=== PATIENT | male | born 1960 | race Caucasian/White ===

== ENCOUNTER 2019-05-02 00:55 | Day surgery (SDC) | payer OTHER, SELFPAY ==
[2019-04-29 13:53] VITALS: BMI 29.0
--- NOTE | 2019-05-02 10:08 | WPDANESEPPF ---
Anes - Initial Pre Proc Eval Procedure: Operation Date: 05/02/19 11:30 Proposed Procedures p Screening Colonoscopy - Justin Skinner MD Date/Time: 05/02/19 10:08 Surgeon: Justin Skinner MD Pre Op Diagnosis: Neoplasm Screening Patient Data Age: 59 Gender: M Height: 1.85 m Weight: 100 kg Allergies Allergy/AdvReac Type Severity Reaction Status Date / Time No Known Allergies Allergy Verified 04/29/19 13:52 Home Medications Medication Instructions Recorded Confirmed Type No Home Medications 04/29/19 04/29/19 History Patient hx anesthesia problems: none Family hx anesthesia problems: none PMFSH Past Medical History Medical History (Updated 05/02/19 @ 10:09 by Brock Mackenzie MD) Gastroesophageal reflux disease Overweight (BMI 25.0-29.9) PUD (peptic ulcer disease) HAD ULCER AT GE JUNCTION 2018 Family History Family History (Updated 03/11/18 @ 08:48 by DOCTOR UNKNOWN) Father Family history of coronary artery disease Patient's father is in good health Family history of cardiovascular disease Family history of malignant melanoma Mother Patient's mother is in good health Hypertension Sibling Patient's sister is in good health Patient's brother is in good health Grandparent Carcinoma of colon, Onset Age: 57 Social History Social History Smoking status: Former smoker Smoking end date: 02/26/83 Alcohol intake: current Anes - Eval Final PreProcedure Day of Procedure 05/02/19 10:08 Patient weight: overweight Heart: regular rate and rhythm Lungs: clear to auscultation and normal air movement Airway: Mallampati scale class II Neurological: alert and oriented Last oral intake: >/= 8 hours ASA classification: II Emergent: no Anesthetic plan: proceed Anesthesia type and monitoring: general GIVS Informed Consent: The patient's anesthetic plan and its attendant risks and benefits were discussed with the patient/family/POA. Questions were solicited and answers provided to the satisfaction of the patient/family/POA.
--- NOTE | 2019-05-02 10:24 | P.HP_ITS ---
History of Present Illness History of Present Illness Consent: Risks, benefits, and alternatives have been discussed and questions answered. Patient agrees to proceed with procedure. Chief complaint: Neoplasm Screening Narrative: Nacho Crabtree is a 59 year old W male referred for screening colonoscopy secondary history of colonic polyps colonoscopy 5 years ago. Patient also has 2 siblings with colon polyps and paternal grandfather with colon cancer. Patient is asymptomatic. [facility]LY [facility], [facility] Past Medical History Medical History (Updated 05/02/19 @ 10:09 by Brock Mackenzie MD) Gastroesophageal reflux disease Overweight (BMI 25.0-29.9) PUD (peptic ulcer disease) HAD ULCER AT GE JUNCTION 2018 Family History Family History (Updated 03/11/18 @ 08:48 by DOCTOR UNKNOWN) Father Family history of coronary artery disease Patient's father is in good health Family history of cardiovascular disease Family history of malignant melanoma Mother Patient's mother is in good health Hypertension Sibling Patient's sister is in good health Patient's brother is in good health Grandparent Carcinoma of colon, Onset Age: 57 Social History Social History Smoking status: Former smoker Smoking end date: 02/26/83 Alcohol intake: current Meds Home Medications and Allergies Home Medications Medication Instructions Recorded Confirmed Type No Home Medications 04/29/19 04/29/19 History Allergies Allergy/AdvReac Type Severity Reaction Status Date / Time No Known Allergies Allergy Verified 04/29/19 13:52 Exam Const: Orientation/consciousness: patient oriented x3 Resp: Auscultation: clear to auscultation bilaterally Cardio: Rate: regular rate Rhythm: regular rhythm Heart sounds: no murmurs GI: GI Palp: Yes Soft to palpation, No Tenderness to palpation present (GI), Yes No hepatosplenomegaly present and No Palpable mass present Auscultation: normal bowel sounds Neuro: General: patient oriented x3 and no focal motor deficits Extrem: General: no pedal edema Assessment and Plan Additional Plan Screening colonoscopy in high risk patient
[2019-05-02 10:27] VITALS: BP 132/89; PULSE 72; RESP 17; TEMP 36.3; O2SAT 99
[2019-05-02] MEDS: LACTATED RINGERS 1,000 ML 150 ML IV CONT (10:32)
[2019-05-02 11:37] VITALS: BP 123/79; PULSE 74; RESP 18; O2SAT 94
[2019-05-02 11:47] VITALS: BP 117/80; PULSE 68; RESP 18; O2SAT 98
== END 2019-05-02 12:08 | disposition home or self-care (01) ==
PROVIDERS: PCP Internal Medicine; Visit Provider Internal Medicine Gastroenterology
PROC: 0DJD8ZZ Inspection of Lower Intestinal Tract, Via Natural or Artificial Opening Endoscopic (ICD-10-PCS; CPT 45378; principal; 2019-05-02 11:30)
DX: Z12.11 Encounter for screening for malignant neoplasm of colon (principal); D12.2 Benign neoplasm of ascending colon; K62.1 Rectal polyp; K57.30 Diverticulosis of large intestine without perforation or abscess without bleeding; Z83.71 Family history of colonic polyps; K21.9 Gastro-esophageal reflux disease without esophagitis; K27.9 Peptic ulcer, site unspecified, unspecified as acute or chronic, without hemorrhage or perforation; Z87.891 Personal history of nicotine dependence
CPT/HCPCS: 45380; 88305; J2704; J7120

== ENCOUNTER 2024-05-29 02:02 | Day surgery (SDC) | payer OTHER, SELFPAY ==
[2024-05-19 13:13] VITALS: BMI 29.0
--- OUTSIDE RECORDS SUMMARY | 2024-05-29 02:05 | XMS_ITS | Encounter Summary ---
Author Organization [facility] Address [address] [place] [address] Care Team Providers Care Aerospace Project Manager Name Role Phone ErnaNic emery Katya DO Primary Care Provider Encounter Details Date Type Department Care Team (Late st Contact Info) Description 07/18/2018 Lab Requisition [facility] Care DermPath Lab [address] [place] [id number] Cuate Norton MD [address] [place] [address] Social History Tobacco Use Types Packs/Day Years Used Date Smoking Tobacco: Former Cigarettes Alcohol Use Standard Drinks/Week Comments Yes 5 (1 standard drink = 0.6 oz pur e alcohol) Sex and Gender Information Value Date Recorded Sex Assigned at Not on file Gender Identity Not on file Sexual Orientation Not on file documented as of this encounter Plan of Treatment Not on file documented as of this encounter Procedures Procedure Name Priority Date/Time Associated Diagnosis Comments DERMATOPATHOLOGY Routine 07/17/2018 12:0 0 AM CDT documented in this encounter Results * DERMATOPATHOLOGY (07/17/2018 12:00 AM CDT) Case Report Dermatopathology Report Case: [id number] Authorizing Provider: Cuate Norton MD Collected: 07/17/2018 12:00 AM Pathologist: Agustina Restrepo MD Received: 07/18/2018 06:41 AM Specimens: A) - Skin, mid upper forehead B) - Skin, right lateral chest 1:23 PM T DERMATOPATHOLOGY LABORATORY Final Diagnosis Specimen A. SKIN, mid upper forehead: BASAL CELL CARCINOMA, NODULAR TYPE (C44.319) Specimen B. SKIN, right lateral chest: SEBORRHEIC KERATOSIS, IRRITATED AND INFLAMED (L82.0) 1:23 PM T DERMATOPATHOLOGY LABORATORY Clinical History A: R/O BCC B: R/O MM 1:23 PM CDT DERMATOPATHOLOGY LABORATORY Gross Description Specimen A: Received is one formalin filled container labeled with the patient's name and designated mid upper forehead. The specimen consists of a shave biopsy measuring 9x5x1 mm. Jar 0. Specimen B: Received is one formalin filled container labeled with the patient's name and designated right lateral chest. The specimen consists of a shave biopsy measuring 12x9x3 mm. Jar 0. 1:23 PM T DERMATOPATHOLOGY LABORATORY Microscopic Description Specimen A. SKIN, mid upper forehead: Within the dermis there are aggregates of basaloid cells with a high nuclear to cytoplasmic ratio and peripheral palisading. Specimen B. SKIN, right lateral chest: Sections show acanthosis, papillomatosis, hyperkeratosis, and squamous eddies. There is a lymphohistiocytic infiltrate within the papillary dermis. 1:23 PM CDT DERMATOPATHOLOGY LABORATORY Disclaimer An external and internal positive and negative controls are appropriate for the histochemical, immunohistochemical and immunofluorescence stain(s) in this case (if any), except where stated explicitly. The performance characteristics of the stain(s) cited in this report were developed and its performance characteristic determined by the Dermatopathology Laboratory at [facility], directed by Dr. Melissa Dutton. These tests need not be, and therefore are not, approved by the [place] Food and Drug Administration. The tests are used for clinical purposes. Billing Codes Specimen Charges Stain Charges 74759 40346 1 1 1:23 PM CDT DERMATOPATHOLOGY LABORATORY Embedded Images 1:23 PM T DERMATOPATHOLOGY LABORATORY Pathology/Cytology TISSUE SPECIMEN FROM SKIN / Unknown 07/17/2018 07/18/2018 6:41 AM CDT Miscellaneous samples (specimen) TISSUE SPECIMEN FROM SKIN / Unknown 07/17/2018 07/18/2018 6:41 AM CDT Cuate Norton MD LAB - PATHOLOGY/CYTO LOGY ORDERABLES DERMATOPATHOLOGY LABORATORY [facility] - Department of Dermatology [address] [place] [address] 5th Floor Lab [address] [phone] documented in this encounter Visit Diagnoses Not on filedocumented in this encounter Care Teams Aerospace Project Manager Relationship Specialty Start Date End Date Nic Olivera DO PCP - General 05/28/14 documented as of this encounter
--- OUTSIDE RECORDS SUMMARY | 2024-05-29 02:05 | XMS_ITS | Referral Summary ---
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
--- OUTSIDE RECORDS SUMMARY | 2024-05-29 02:05 | XMS_ITS | Clinical Summary ---
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[employer] Gender Identity Not on file Sexual Orientation Not on file Plan of Treatment Health Maintenance Due Date Last Done Comments Hepatitis C Virus (HCV) Screening 1960 TdaP Immunization 1959 Colonoscopy 02/03/2004 Colorectal Cancer Screening 02/03/2004 Cologuard 2009 Immunochemical Fecal Occult Blood 2009 Pneumococcal Immunization (5 0+ years) (1 of 1 - PCV) 2009 Zoster Immunization (1 of 2) 2009 Influenza Immunization (#1) 2023 SARS-COV-2 Immunization ( season) 2023 01/13/2021, 05/13/2020, 04/15/2020 Respiratory Syncytial Virus (RSV) Immunization (Adult) (1 - 1-dose 75+ series) 2034 DTaP/Tdap/Td Immunization Discontinued 03/29/1995 Hepatitis B Immunization Aged Out No longer eligible based on patient's age to complete this topic Meningococcal Immunization (ACWY) Aged Out No longer eligible based on patient's age to complete this topic Rotavirus Immunization Aged Out No lo nger eligible based on patient's age to complete this topic
--- OUTSIDE RECORDS SUMMARY | 2024-05-29 02:05 | XMS_ITS | Encounter Summary ---
Author Organization [facility] Address [address] [place] [address] Care Team Providers Care Business Supervisor Name Role Phone GabebijuNic DO Primary Care Provider Encounter Details Date Type Department Care Team (Late st Contact Info) Description 10/18/2022 Lab Requisition [facility] - DermPath Lab [address] [place] [address] Cuate Norton MD [address] [place] [address] Social History Tobacco Use Types [...] Priority Date/Time Associated Diagnosis Comments DERMATOPATHOLOGY Routine 10/18/2022 12:0 0 AM CDT documented in this encounter Results * DERMATOPATHOLOGY (10/18/2022 12:00 AM CDT) Case Report Dermatopathology Report Case: [id number] Authorizing Provider: Cuate Norton MD Collected: 10/18/2022 12:00 AM Ordering Location: [facility] DermPath Lab Received: 10/19/2022 07:37 AM Pathologist: Michelle Lora MD Specimen: Skin, right mandibular post 1:58 PM CDT DERMATOPATHOLOGY LABORATORY Final Diagnosis Specimen A. SKIN, right mandibular post: ACTINIC KERATOSIS (L57.0) SEBORRHEIC KERATOSIS, IRRITATED AND INFLAMED (L82.0) (see microscopic description) 1:58 PM CDT DERMATOPATHOLOGY LABORATORY Clinical History Nodule/r/o neoplasm Was nodule BCC Near MOHS site 2014 Check margins 1:58 PM CDT DERMATOPATHOLOGY LABORATORY Gross Description Specimen A: Received is one formalin filled container labeled with the patient's name and designated right mandibular post. The specimen consists of a shave biopsy measuring 7x4x2 mm. Jar 0. 1:58 PM CDT DERMATOPATHOLOGY LABORATORY Microscopic Description Specimen A. SKIN, right mandibular post: There is focal parakeratosis. The lower half of the epidermis shows disorderly maturation of keratinocytes with nuclear pleomorphism. Sections show adjacent acanthosis, papillomatosis, hyperkeratosis, and squamous eddies. There is a lymphohistiocytic infiltrate within the papillary dermis. 1:58 PM CDT DERMATOPATHOLOGY LABORATORY Disclaimer An external and internal positive and negative controls are appropriate for the histochemical, immunohistochemical and immunofluorescence stain(s) in this case (if any), except where stated explicitly. The performance characteristics of the stain(s) cited in this report were developed and its performance characteristic determined by the Dermatopathology Laboratory at [facility], directed by Dr. Melissa Dutton. These tests need not be, and therefore are not, approved by the [place] Food and Drug Administration. The tests are used for clinical purposes. Billing Codes Specimen Charges Stain Charges 64939 1 1:58 PM CDT DERMATOPATHOLOGY LABORATORY Embedded Images 1:58 PM CDT DERMATOPATHOLOGY LABORATORY Pathology/Cytolog y TISSUE SPECIMEN FROM SKIN / Unknown 10/18/2022 10/19/2022 7:37 AM CDT Cuate Norton MD LAB - PATHOLOGY/CYTO LOGY ORDERABLES DERMATOPATHOLOGY LABORATORY [facility] - Department of Dermatology [facility] Medicine [address] [place] [address], [address] [phone] documented in this encounter Visit Diagnoses Not on filedocumented in this encounter Care Teams Business Supervisor Relationship Specialty Start Date End Date Nic Olivera DO PCP - General 05/28/14 documented as of this encounter
--- OUTSIDE RECORDS SUMMARY | 2024-05-29 02:05 | XMS_ITS | Clinical Summary ---
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
--- OUTSIDE RECORDS SUMMARY | 2024-05-29 02:05 | XMS_ITS | Encounter Summary ---
Author Organization [facility] Address [address] [place] [address] Care Team Providers Care Exit Booth Agent Name Role Phone GabebijuNic DO Primary Care Provider Encounter Details Date Type Department Care Team (Late st Contact Info) Description 11/01/2021 Lab Requisition [facility] DermPath Lab [address] [place] [address] Cuate Norton MD [address] [place] [address] Social History Tobacco Use Types [...] Priority Date/Time Associated Diagnosis Comments DERMATOPATHOLOGY Routine 11/01/2021 12:0 0 AM CDT documented in this encounter Results * DERMATOPATHOLOGY (11/01/2021 12:00 AM CDT) Case Report Dermatopathology Report Case: [id number] Authorizing Provider: Cuate Norton MD Collected: 11/01/2021 12:00 AM Ordering Location: [facility] DermPath Lab Received: 11/01/2021 03:12 PM Pathologist: Ludmila Dutton MD Specimen: Skin, left yazidi 2 3:47 PM CDT DERMATOPATHOLOGY LABORATORY Final Diagnosis Specimen A. 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 The specimen consists of a shave biopsy measuring 0q8p3va. Jar 0. 2 3:47 PM CDT DERMATOPATHOLOGY LABORATORY Microscopic Description Specimen A. SKIN, left yazidi: There are nests of cytologically bland melanocytes within the dermis that mature with depth. Sections also show an acanthotic lesion composed of relatively uniform keratinocytes. There is hyperkeratosis and pseudo horn cysts formation. Neutrophils, histiocytes, and multinucleated giant cells are present within the dermis. 2 3:47 PM CDT DERMATOPATHOLOGY LABORATORY Disclaimer An external and internal positive and negative controls are appropriate for the histochemical, immunohistochemical and immunofluorescence stain(s) in this case (if any), except where stated explicitly. The performance characteristics of the stain(s) cited in this report were developed and its performance characteristic determined by the Dermatopathology Laboratory at [facility], directed by Dr. Melissa Dutton. These tests need not be, and therefore are not, approved by the [place] Food and Drug Administration. The tests are used for clinical purposes. Billing Codes Specimen Charges Stain Charges 13315 1 2 3:47 PM CDT DERMATOPATHOLOGY LABORATORY Embedded Images 2 3:47 PM CDT DERMATOPATHOLOGY LABORATORY Pathology/Cytolog y TISSUE SPECIMEN FROM SKIN / Unknown 11/01/2021 11/01/2021 3:12 PM CDT Cuate Norton MD LAB - PATHOLOGY/CYTO LOGY ORDERABLES DERMATOPATHOLOGY LABORATORY [facility] - Department of Dermatology [facility] Specialized Medicine [address] [place] [address], [address] [phone] documented in this encounter Visit Diagnoses Not on filedocumented in this encounter Care Teams Exit Booth Agent Relationship Specialty Start Date End Date Nic Olivera DO PCP - General 05/28/14 documented as of this encounter
--- OUTSIDE RECORDS SUMMARY | 2024-05-29 02:05 | XMS_ITS | Clinical Summary ---
Author Organization [facility] Address [address] [place] [address] Care Team Providers Care Physician In Private Practice Name Role Phone Nic Olivera DO Primary Care Provider [phone]- [phone] Source Comments [facility],non-owned Affiliates and Associated Physician Practices is amultiple site organization consisting of ambulatory clinics and hospital sitesin [place], [place], [place] and [place]. This disclosure is being madepursuant to the Care Everywhere program and may not contain all information available regarding this patient. Last updated 17.[facility] [employer] Active Problems Problem Noted Date Diagnosed Date Malignant melanoma of right lower extremity incl uding hip 05/25/2014 Basal cell carcinoma of skin of other parts of f la 06/16/2013 Family History Medical History Relation Name Comments Cancer - Skin, Non Melanoma Brother Cancer - Skin, Melanoma Father Stat us: Alive Relation Name Status Comments Brother Father Social History Tobacco Use Types Packs/Day Years Used Date Smoking Tobacco: Former Cigarettes Alcohol Use Standard Drinks/Week Comments Yes 5 (1 standard drink = 0.6 oz pur e alcohol) Sex and Gender Information Value Date Recorded Sex Assigned at Not on file Gender Identity Not on file Sexual Orientation Not on file Last Filed Vital Signs Vital Sign Reading Time Taken Comments Blood Pressure 115/79 07/01/2014 9:37 AM CDT Pulse 76 07/01/2014 9:37 AM CDT Temperature 36.4 C (97.6 F) 07/01/2014 9:37 AM CDT Respiratory Rate 16 06/02/2014 9:45 AM CDT Oxygen Saturation 100% 07/01/2014 9:37 AM CDT Inhaled Oxygen Concentration - - Weight 91.2 kg (201 lb) 07/01/2014 9:37 AM CDT Height 185.4 cm (6' 1 ) 07/01/2014 9:37 AM CDT Body Mass Index 26.52 07/01/2014 9:37 AM CDT Plan of Treatment Health Maintenance Due Date Last Done Comments COLOGUARD (AGES 45-75) - COL ON CA SCREENING 1959 COLON MONITORING 1959 COLONOSCOPY - COLON CA SCREENING 1959 CT COLONOGRAPHY - COLON CA SCREENING 1959 Colorectal Cancer Screening 1959 FIT - COLON CA SCREENING 1959 FLEX SIG - COLON CA SCREENING 1959 LIPID TESTING 1959 HIV SCREENING 1974 HEPATITIS C SCREENING 01/28/1977 DTAP/TDAP/TD VACCINES (1 - Tdap) 1978 PNEUMOCOCCAL VACCINE 50+ (1 of 1 - PCV) 2009 ZOSTER VACCINE (1 of 2) 2009 COVID-19 VACCINE (2 - 2023-2 5 season) 2023 01/13/2021 INFLUENZA VACCINE (#1) 2023 AAA SCREENING 02/03/2024 DEPRESSION SCREENING 02/27/2024 Respiratory Syncytial Virus (RSV) Vaccine Pt: or over 60 yrs (1 - 1-dose 75+ series) 2034 HEPATITIS B VACCINE Aged Out No longe r eligible based on patient's age to complete this topic HIB VACCINE Aged Out No longer eligi ble based on patient's age to complete this topic HPV VACCINE Aged Out No longer eligi ble based on patient's age to complete this topic MENINGOCOCCAL (Group B) VACC INE SHARED DECISION-MAKING Aged Out No longer eligibl e based on patient's age to complete this topic MENINGOCOCCAL GROUPS A/C/Y/W VACCINE Aged Out No longer eligible b ased on patient's age to complete this topic Care Teams Physician In Private Practice Relationship Specialty Start Date End Date Nic Olivera DO PCP - General 05/28/14
--- OUTSIDE RECORDS SUMMARY | 2024-05-29 02:05 | XMS_ITS | Patient Health Record ---
Author Organization [facility] Planning Address [address] [place] [address] Care Team Providers Care Explosives Detonator Name Role Phone Otf Carlinsa Primary Care Provider [phone] Reason For Referral No Information Immunizations Vaccine Route Administration Date Status Comme nts [id number] Vaccine IM Intramuscular 04/15/2020 Administered Pt tolerated we ll. [id number] Vaccine IM Intramuscular 05/13/2020 Administered Pt tolerated we ll. Plan Of Treatment No Information Insurance Providers Payer Name Payer Address Payer Phone Subscriber Number Group Number Insured Name Patient Relationship to Insured Coverage Start Date Coverage End Date [employer] [address] [place] [address] [id number] Nacho Ramirez Self - patient is the insured
[2024-05-29 10:33] VITALS: BP 122/82; PULSE 80; RESP 16; TEMP 35.8; O2SAT 100; BMI 30.4
[2024-05-29] MEDS: LACTATED RINGERS 1,000 ML 150 ML IV CONT (10:41)
--- NOTE | 2024-05-29 10:50 | P.PNAN_ITS ---
Anes - Initial Pre Proc Eval Procedure: Operation Date: 05/29/24 11:30 Proposed Procedures p Colonoscopy - Kevin Clifton MD Date/Time: 05/29/24 10:50 Surgeon: Kevin Clifton MD Pre Op Diagnosis: Personal history of colon polyps, Patient Data Age: 64 Gender: M Height: 1.85 m Weight: 104.7 kg Last Vital Signs Temp 96.4 F L 05/29/24 10:33 Pulse 80 05/29/24 10:33 Resp 16 05/29/24 10:33 BP 122/82 05/29/24 10:33 Pulse Ox 100 05/29/24 10:33 O2 Del Method Room Air 05/29/24 10:33 Allergies Allergy/AdvReac Type Severity Reaction Status Date / Time No Known Allergies Allergy Verified 05/29/24 10:32 Home Medications ?Medication ?Instructions ?Recorded ?Confirmed ?Type aspirin 81 mg tablet,delayed 81 mg PO DAILY 05/19/24 05/29/24 History release multivitamin (Daily Multi-Vitamin 1 tablet PO DAILY 05/19/24 05/29/24 History tablet) omega 4-csc-vnk-fish oil 60 mg-90 1 cap PO DAILY 05/19/24 05/29/24 History mg-500 mg capsule (Fish Oil) Patient hx anesthesia problems: none Family hx anesthesia problems: none Results Review: All pre-operative results and documents have been reviewed as part of the pre- operative evaluation. [facility] Past Medical History Medical History (Updated 05/02/19 @ 10:09 by Brock Mackenzie, ) Overweight (BMI 25.0-29.9) PUD (peptic ulcer disease) HAD ULCER AT GE JUNCTION 2019 Gastroesophageal reflux disease Family History Family History (Updated 03/11/18 @ 08:48 by DOCTOR UNKNOWN) Father Family history of coronary artery disease Patient's father is in good health Family history of cardiovascular disease Family history of malignant melanoma Mother Patient's mother is in good health Hypertension Sibling Patient's sister is in good health Patient's brother is in good health Grandparent Carcinoma of colon, Onset Age: 57 Social History Social History Smoking status: Never smoker Smoking end date: 02/26/83 Alcohol intake: current Drinks per week: 7 Alcohol use details: Wine Substance use: never Substance use type: does not use Living arrangements: with family Spiritual care concerns: No Anes - Eval Final PreProcedure Day of Procedure 05/29/24 10:50 Patient weight: normal Heart: regular rate and rhythm Lungs: clear to auscultation Airway: Mallampati scale class II Neurological: alert and oriented Last oral intake: >/= 8 hours ASA classification: II Emergent: no Anesthetic plan: proceed Anesthesia type and monitoring: general GIVS and standard monitoring Results Review: All pre-operative results and documents have been reviewed as part of the pre- operative evaluation. Informed Consent: The patient's anesthetic plan and its attendant risks and benefits were di scussed with the patient/family/POA. Questions were solicited and answers provided to the satisfaction of the patient/family/POA.
--- NOTE | 2024-05-29 11:06 | PM.HPGS ---
History of Present Illness History of Present Illness Consent: Risks, benefits, and alternatives have been discussed and questions answered. Patient agrees to proceed with procedure. Chief complaint: Personal history of colon polyps, Narrative: Nacho Crabtree is a 64 year old male with colon polyp in 2019 Review of Systems Review of Systems: All systems reviewed & are unremarkable except as noted in HPI and below PMFSH Past Medical History Medical History (Updated 05/29/24 @ 11:07 by Kevin Clifton MD) Colon polyp Overweight (BMI 25.0-29.9) PUD (peptic ulcer disease) HAD ULCER AT GE JUNCTION 2019 Gastroesophageal reflux disease Family History Family History (Updated 03/11/18 @ 08:48 by DOCTOR UNKNOWN) Father Family history of coronary artery disease Patient's father is in good health Family history of cardiovascular disease Family history of malignant melanoma Mother Patient's mother is in good health Hypertension Sibling Patient's sister is in good health Patient's brother is in good health Grandparent Carcinoma of colon, Onset Age: 57 Social History Social History Smoking status: Never smoker Smoking end date: 02/26/83 Alcohol intake: current Drinks per week: 7 Alcohol use details: Wine Substance use: never Substance use type: does not use Living arrangements: with family Spiritual care concerns: No Meds Home Medications and Allergies Home Medications ?Medication ?Instructions ?Recorded ?Confirmed ?Type aspirin 81 mg tablet,delayed 81 mg PO DAILY 05/19/24 05/29/24 History release multivitamin (Daily Multi-Vitamin 1 tablet PO DAILY 05/19/24 05/29/24 History tablet) omega 9-wzj-riu-fish oil 60 mg-90 1 cap PO DAILY 05/19/24 05/29/24 History mg-500 mg capsule (Fish Oil) Allergies Allergy/AdvReac Type Severity Reaction Status Date / Time No Known Allergies Allergy Verified 05/29/24 10:32 Vital Signs Vital Signs - 24 hr 05/29/24 10:33 Temperature 96.4 F L Pulse Rate 80 Respiratory Rate 16 Blood Pressure 122/82 Pulse Oximetry 100 Oxygen Delivery Room Air Exam Const: General: comfortable and no acute distress HENMT: Face/Nose/Sinus: Normal nares present Eyes: General: appearance normal, both eyes and all related structures Neck: Neck: no JVD Resp: Auscultation: clear to auscultation bilaterally Cardio: Rate: regular rate Rhythm: regular rhythm GI: Inspection: non-distended GI Palp: Yes Soft to palpation Skin: General skin exam: normal color Neuro: General: gait normal Speech: normal speech Extrem: General: normal to inspection Psych: Mental Status: mental status grossly normal Assessment and Plan Assessment and plan (1) Colon polyp: Code(s): K63.5 - Polyp of colon Status: Acute Assessment and Plan: colonoscopy
[2024-05-29 11:25] VITALS: BP 119/74; PULSE 70; RESP 16; O2SAT 98
[2024-05-29 11:35] VITALS: BP 99/74; PULSE 78; RESP 20; O2SAT 100
[2024-05-29 11:45] VITALS: BP 128/81; PULSE 70; RESP 20; O2SAT 100
== END 2024-05-29 11:48 | disposition home or self-care (01) ==
PROVIDERS: PCP Family Medicine; Visit Provider Internal Medicine Gastroenterology
PROC: 0DJD8ZZ Inspection of Lower Intestinal Tract, Via Natural or Artificial Opening Endoscopic (ICD-10-PCS; CPT 45378; principal; 2024-05-29 11:30)
DX: Z12.11 Encounter for screening for malignant neoplasm of colon (principal); D12.2 Benign neoplasm of ascending colon; K64.8 Other hemorrhoids; K57.30 Diverticulosis of large intestine without perforation or abscess without bleeding; K21.9 Gastro-esophageal reflux disease without esophagitis; Z87.11 Personal history of peptic ulcer disease
CPT/HCPCS: 45380; 88305; J2003; J2704; J7120